=== PATIENT | male | born 1975 | race Caucasian/White ===

== ENCOUNTER 2016-07-18 13:18 | Emergency (ER) | payer MEDICAID ==
--- NOTE | 2016-07-18 13:34 | ERNOTE ---
Medical Problem HPI - Narrative Date of Service: 07/18/16 - General Chief Complaint: General Assessment Time Seen by Provider: 07/18/16 13:33 Source: patient - Immun/Allergies/Home Medications Immunizations: IMMUNIZATION HX Immunizations Up to Date Yes History of Influenza Vaccine No Hx Pneumococcal Vaccination No Allergies/Adverse Reactions: Allergies No Known Allergies Allergy (Verified 07/18/16 13:31) Home Medications: HOME MEDICATIONS NK [No Home Medication] 07/18/16 [Last Taken Unknown] - History of Present History Narrative: Pt presents to ED with c/o swallowing a 1 1/2 inch nail 2 days ago. Pt states he was hanging curtains with the nail in his mouth and accidentally swallowed it. Pt states he drinks a lot and smokes pot. Pt states that he didn't remember swallowing the nail because he drank a lot afterwards and a luis f of his reminded him of the event which then he claims he started to remember. Pt denies any additional pain/discomfort from this event. Pt denies any aggravating or alleviating factors. Pt states that he has swallowed a needle in the past and needed to have surgery to remove it. Date (Duration): 07/16/16 Severity: mild Review of Systems - Review of Systems Constitutional: Present: no symptoms reported. Absent: recent illness, fever, chills, weakness EYE: Present: no symptoms reported. Absent: double vision, vision changes ENT: Present: no symptoms reported. Absent: nose pain, nose congestion, nasal drainage Respiratory: Present: cough - intermittent dry cough. Absent: wheezing Cardiology: Present: no symptoms reported. Absent: chest pain, palpitations Gastrointestinal/Abdominal: Present: abdominal pain - pain in upper right quadrant not changed from patient baseline. Absent: nausea, vomiting, diarrhea , constipation, eating less, drinking less Genitourinary: Present: no symptoms reported. Absent: frequency, pain, hematuria Musculoskeletal: Present: back pain - right lower back pain unchanged from patient normal Skin: Present: no symptoms reported. Absent: rash, change in color Neurological: Present: no symptoms reported. Absent: headache, dizziness/light- headedness, seizure, weakness, tingling, tremors Endocrine: Present: no symptoms reported. Absent: excessive sweating, flushing Hematologic/Lymphatic: Present: no symptoms reported. Absent: easy bruising, easy bleeding Psych: Present: no symptoms reported. Absent: anxiety, depressed All Other Systems: All systems neg except as marked - Patient's Past Medical History Patient History - Medical: No pertinent hx Patient History - Cardiac/Respiratory: No pertinent hx Patient History - Cancer: No Hx of Cancer Patient History - Surgical Procedures: Other Patient History - Other: None - Social History Living Situations: home Abuse History: Hx of Substance Use Psych History: No pertinent hx Smoking Status: Current some day smoker Have you smoked in the past 12 months: Yes Alcohol Use: heavy Drug Use: marijuana - Immunizations Immunizations Up to Date: Yes Hx Pneumococcal Vaccination: No History of Influenza Vaccine: No Physical Exam - Physical Exam General Appearance: Present: wd/wn, alert, no apparent distress, active Eye Exam: Normal inspection: bilateral, PERRL: bilateral, EOMI: bilateral Ears, Nose, Throat: Absent: hearing decreased, nasal congestion, sinus pain/ drainage Neck: Present: normal inspection, nontender, supple, full range of motion Respiratory: Present: no respiratory distress, normal breath sounds, no accessory muscle use, chest nontender, lungs clear. Absent: respiratory distress, accessory muscle use, crackles, rhonchi, wheezing Cardiovascular/Chest: Present: regular rate, rhythm, no murmur, normal peripheral pulses. Absent: tachycardia, bradycardia, systolic murmur, diastolic murmur Gastrointestinal/Abdominal: Present: normal bowel sounds, nondistended, soft, no organomegaly, tenderness - right upper quadrant tenderness to palpation. Absent: nontender, abnormal bowel sounds, distended Back Exam: Present: normal inspection, normal range of motion, no vertebral tenderness Extremity Exam: Present: normal inspection, non-tender, normal range of motion, no edema Neurological Exam: Present: alert, oriented, normal mood/affect, no motor/ sensory deficits. Absent: facial droop, motor weakness Skin Exam: Present: normal color, warm/dry. Absent: skin rash Lymphatic Exam: Present: no adenopathy ED Progress - Date and Time Seen: Date and Time: 07/18/16 13:[address] Anguiano regarding nail in right lower quadrant. 07/18/16 14:04 Dr Umana came to evaluate pt. and we will have pt. return home and wait for nail to be passed. Pt. to follow up with Dr Morgan in clinic if he develops any abd pain or does not pass nail in 1 week. - Vital Signs Patient's Vital Signs:: I have reviewed the patient's vital signs. Vital Signs: Vital Signs 07/18/16 13:27 Temperature 36.7 C Pulse Rate 83 Respiratory 16 Rate Blood Pressure 140/90 O2 Sat by Pulse 100 Oximetry - X-Ray X-Ray #1 X-Ray: abdomen - 1 1/2 inch nail in right lower quadrant - Progress/Reassessment Chief Complaint: General Assessment Departure - Departure Clinical Impression: Swallowed foreign body Qualifiers: Encounter type: initial encounter Qualified Code(s): T18.9XXA - Foreign body of alimentary tract, part unspecified, initial encounter Disposition: Home self-care Condition: Good Instructions: Swallowed Foreign Body, Adult, [id number] Additional Instructions: Please follow up with Dr Morgan as needed. Referrals: Linh Ruiz MD [Staff Physician] -
[2016-07-18 13:58] VITALS: BP 132/91
--- OUTSIDE RECORDS SUMMARY | 2016-07-18 13:59 | XMS REPORT | Continuity of Care Document ---
:1975 Author Organization [facility] ([facility]) Address [address] [place] [address] Phone [phone] Care Team Providers Name Role Phone Unavailable Primary Care Provider Unavailable Source Comments This disclosure is being made pursuant to the Care Everywhere program, applicable federal and state laws, and may not contain all informaitonavailable regarding this patient.[facility] ([facility]) Active Allergies and Adverse Reactions Not on File Current Medications Not on file Active Problems Not on file Social History Tobacco Use Types Packs/Day Years Used Date Never Assessed Plan of Care Health Maintenance Due Date Last Done Comments Hepatitis B Vaccine (1 of 3 - Primary Series) 1975 Tdap Vaccine 1984 Lipid Disorder Screening 08/30/1991 MMR Vaccine 08/30/1991 Td Vaccine 08/30/1991 Influenza Vaccine: Seasonal (#1) 12/06/2015 Results from Last 3 Months Not on file
--- NOTE | 2016-07-18 14:12 | CONS ---
HPI - General Date of Service: 07/18/16 Narrative: Asked to see this ER patient who presented today after swallowing a nail on Sunday (3 days ago). He was significantly impaired at the time this occured. Denies any abdominal pain, fevers, chills. AXR shows a linear metallic object in the right pelvis, without free air. Source: patient, RN/MD, old records Exam Limitations: no limitations - History of Present Illness Allergies/Adverse Reactions: Allergies No Known Allergies Allergy (Verified 07/18/16 13:31) Home Medications: Home Medications Medication Instructions Recorded Last Taken NK [No Home Medication] 07/18/16 Unknown - Patient's Past Medical History Patient History - Medical: No pertinent hx Patient History - Cardiac/Respiratory: No pertinent hx Patient History - Cancer: No Hx of Cancer Patient History - Surgical Procedures: Other Patient History - Other: None - Social History Living Situations: home Abuse History: Hx of Substance Use Psych History: No pertinent hx Smoking Status: Current some day smoker Have you smoked in the past 12 months: Yes Alcohol Use: heavy Drug Use: marijuana - Immunizations Immunizations Up to Date: Yes Hx Pneumococcal Vaccination: No History of Influenza Vaccine: No Procedures CLOSURE SKIN & SUBCUTANEOUS NEC (12/21/04) DRAINAGE OF R LOW ARM SUBCU/FASCIA, PERC APPROACH, DIAGN (03/09/16) REPAIR SCALP SKIN, EXTERNAL APPROACH (08/15/15) Physical Examination - Exam Vital Signs: Vital Signs - Last Taken Temp 36.8 C 07/18/16 13:58 Pulse 86 07/18/16 13:58 Resp 16 07/18/16 13:58 BP 132/91 07/18/16 13:58 Pulse Ox 100 07/18/16 13:58 O2 Oxygen Delivery Method Room Air Constitutional: Present: Alert, Oriented x3, Cooperative ENT Exam: Present: normal ENT inspection Eye Exam: bilateral eye: normal inspection Neck: Present: normal inspection Respiratory: Present: no respiratory distress Abdomen: Present: soft, nontender, nondistended, no masses. Absent: guarding, rigidity, rebound tenderness Extremity: Present: normal inspection Skin Exam: Present: normal color, warm/dry Neurologic: Present: no motor/sensory deficits - Results and Findings: Narrative: Swallowed nail. Progressing well through GI tract. Should pass uneventfully. He should keep sober until it passes and contact us for any significant abdominal pain/fevers/chills. This was reviewed with patient.
== END 2016-07-18 14:13 | disposition home or self-care (01) ==
LOC: ER 13:18
DX: T18.9XXA Foreign body of alimentary tract, part unspecified, initial encounter (principal); X58.XXXA Exposure to other specified factors, initial encounter; Y93.89 Activity, other specified; Y92.9 Unspecified place or not applicable; Y99.8 Other external cause status; Z72.0 Tobacco use

== ENCOUNTER 2016-11-20 11:44 | Emergency (ER) | payer MEDICAID ==
[2016-11-20] MEDS ORDERED: NORMAL SALINE 1,000 ML IV ONE (12:11)
[2016-11-20] MEDS ORDERED: PANTOPRAZOLE SODIUM 40 MG in NORMAL SALINE 100 ML IV ONE (12:11)
[2016-11-20 12:23] LABS: Hematocrit 45.1 % (42.0-52.0); Hemoglobin 16.1 gm/dL (13.5-18.0); Mean Cell Volume 90.4 fl (78-100); Mean Corpuscular Hemoglobin 32.3 pg (27-31); Mean Corpuscular Hgb Conc 35.7 g/dl (32-36); Mean Platelet Volume 9.1 fl (6.0-9.5); Neutrophil # 2.8 K/mm3 (1.3-6.0); Platelet Count 223 K/mm3 (150-450); Red Blood Count 4.99 M/mm3 (4.7-6.0); Red Cell Distribution Width 13.6 % (11.5-14.0); White Blood Count 5.4 K/mm3 (4.0-10.5)
[2016-11-20] MEDS ORDERED: PANTOPRAZOLE SODIUM 40 MG/100 ML PIGGYBACK IV ONE (12:26)
[2016-11-20] MEDS ORDERED: THIAMINE HCL 100 MG in NORMAL SALINE 50 ML IV ONE (12:27)
[2016-11-20 12:32] LABS: INR 1.02 INR (0.90-1.10); Prothrombin Time (Patient) 10.6 Seconds (9.4-11.4)
--- NOTE | 2016-11-20 12:33 | ERNOTE ---
Medical Problem HPI - General Chief Complaint: General Assessment Time Seen by Provider: 11/20/16 11:57 Source: patient Exam Limitations: no limitations - Immun/Allergies/Home Medications Immunizations: IMMUNIZATION HX Immunizations Up to Date No History of Influenza Vaccine No Hx Pneumococcal Vaccination No Allergies/Adverse Reactions: Allergies No Known Allergies Allergy (Verified 11/20/16 11:56) Home Medications: HOME MEDICATIONS Famotidine [Pepcid] 40 mg PO HS #30 tab 11/20/16 [Last Taken Unknown] Sucralfate [Carafate] 1 gm PO QID #120 tab 11/20/16 [Last Taken Unknown] - History of Present History Narrative: Patient comes in with a rather profound history of both alcohol and tobacco abuse. He states he drinks an easy case of beer a night during the week with even more on the weekend, as well as smoking 2-3 packs of cigarettes a day. He declares this is been his lifestyle for many years however over the past few days he's noticed some epigastric abdominal pain and black stools. He states on the weekend he would drink until he passes out and when he wakes up he will go back to drinking beer again and may drink 2 cases are more a day on the weekend. He describes his epigastric pain as being at least moderate in intensity and burning in nature. Timing: constant, intermittent Modifying Factors - (Worsens): Present: other - increases with any ETOH intake Review of Systems - Review of Systems Constitutional: Present: See HPI EYE: Present: no symptoms reported ENT: Present: no symptoms reported Respiratory: Present: no symptoms reported Cardiology: Present: no symptoms reported Gastrointestinal/Abdominal: Present: no symptoms reported, abdominal pain, other - black tarry stools Genitourinary: Present: no symptoms reported Musculoskeletal: Present: no symptoms reported Skin: Present: no symptoms reported Neurological: Present: no symptoms reported Endocrine: Present: no symptoms reported Hematologic/Lymphatic: Present: no symptoms reported Psych: Present: no symptoms reported - Patient's Past Medical History Patient History - Medical: No pertinent hx Patient History - Cardiac/Respiratory: No pertinent hx Patient History - Cancer: No Hx of Cancer Patient History - Surgical Procedures: Other Patient History - Other: None - Social History Living Situations: home Abuse History: Hx of Substance Use Psych History: No pertinent hx Smoking Status: Current every day smoker Alcohol Use: heavy Drug Use: none, marijuana - Immunizations Immunizations Up to Date: No Hx Pneumococcal Vaccination: No History of Influenza Vaccine: No Physical Exam - Physical Exam General Appearance: Present: wd/wn, alert, moderate distress Eye Exam: Normal inspection: bilateral, PERRL: bilateral Ears, Nose, Throat: Present: normal ENT inspection, H, normal pharynx Neck: Present: normal inspection, nontender Respiratory: Present: no respiratory distress, normal breath sounds, no accessory muscle use, chest nontender, lungs clear Cardiovascular/Chest: Present: regular rate, rhythm, no murmur, normal peripheral pulses Gastrointestinal/Abdominal: Present: normal bowel sounds, nondistended, soft, no organomegaly, tenderness - in the epigastric region Rectal Exam: Present: black stool Back Exam: Present: normal inspection, normal range of motion Extremity Exam: Present: normal inspection, non-tender, no edema, normal range of motion Neurological Exam: Present: alert, oriented, normal mood/affect Skin Exam: Present: normal color, warm/dry Lymphatic Exam: Present: no adenopathy ED Progress - Results and Orders Patient's Lab Results:: I have reviewed the patient's lab results. - Vital Signs Patient's Vital Signs:: I have reviewed the patient's vital signs. Vital Signs: Vital Signs 11/20/16 11:49 Temperature 36.0 C L Pulse Rate 84 Respiratory 16 Rate Blood Pressure 145/93 O2 Sat by Pulse 98 Oximetry - Progress/Reassessment Chief Complaint: General Assessment Plan - Plan Plan: While it should be noted that the Hemoccult was negative by history certainly sounds like he could have an intermittent GI bleed from his chronic alcoholism. I have ordered an H. pylori antibodies which will be a send out and the patient will be sent home on Pepcid and Carafate and given a referral to Dr. Ruiz as I suspect an EGD might be the next appropriate step. He will be given instructions on alcoholism and it was suggested that he look into AA as an adjunct as well. Departure - Departure Clinical Impression: Alcoholism Gastritis Qualifiers: Gastritis type: alcoholic Chronicity: acute Gastritis bleeding: presence of bleeding unspecified Qualified Code(s): K29.20 - Alcoholic gastritis without bleeding Disposition: Home self-care Condition: Good Instructions: Alcohol Intoxication, [id number], Alcohol Use Disorder, Gastritis, Adult, [id number] Referrals: Linh Ruiz MD [Staff Physician] - Prescriptions: Famotidine [Pepcid] 40 mg PO HS #30 tab Sucralfate [Carafate] 1 gm PO QID #120 tab
[2016-11-20 12:37] LABS: Albumin * 4.2 gm/dl (3.4-5.0); Anion Gap 14.9 mmol/L (6.8-13.8); BUN/Creatinine Ratio 16.5 (9.0-21.6); Bilirubin, Total 0.7 mg/dL (0.0-1.1); Ca. Corrected For Albumin 8.7 mg/dL (8.4-10.2); Calcium * 9.2 mg/dL (7.9-10.9); Carbon Dioxide 24.4 mmol/L (24-32.6); Magnesium 2.2 mg/dL (1.2-2.8); Potassium 4.3 mmol/L (3.4-4.6); Total Protein 8.2 gm/dL (6.2-8.2)
[2016-11-20 14:05] VITALS: BP 137/86
== END 2016-11-20 14:04 | disposition home or self-care (01) ==
LOC: ER 11:44
DX: F10.20 Alcohol dependence, uncomplicated (principal); K29.20 Alcoholic gastritis without bleeding; Z72.0 Tobacco use
CPT/HCPCS: 36415; 80053; 82272; 83605; 83690; 83735; 85025; 85610; 96365; 96367; 99284; G0481

== ENCOUNTER 2017-01-22 02:55 | Emergency (ER) | payer MEDICAID ==
[2017-01-22 03:03] VITALS: BP 142/90
[2017-01-22] MEDS ORDERED: KETOROLAC TROMETHAMINE 60 MG/2 ML VIAL IM ONE ×2 (03:13→03:16)
[2017-01-22] MEDS ORDERED: PENICILLIN V POTASSIUM 250 MG TABLET PO ONE (03:13)
[2017-01-22] MEDS ORDERED: PENICILLIN V POTASSIUM 250 MG TABLET ONE (03:16)
--- NOTE | 2017-01-22 03:18 | ERNOTE ---
ENT HPI Time Seen by Provider: 01/22/17 03:10 Source: patient Exam Limitations: no limitations - Immun/Allergies/Home Medications Immunizations: IMMUNIZATION HX Immunizations Up to Date No History of Influenza Vaccine No Hx Pneumococcal Vaccination No Allergies/Adverse Reactions: Allergies Allergy/AdvReac Type Severity Reaction Status Date / Time No Known Allergies Allergy Verified 11/20/16 11:56 Home Medications: HOME MEDICATIONS Sucralfate [Carafate] 1 gm PO QID #120 tab 11/20/16 [Last Taken Unknown] HYDROcodone/ACETAMINOPHEN [[place] 5-325] 2 each PO ONCE #2 tablet 01/22/17 [Last Taken Unknown] Penicillin V Potassium 500 mg PO QID #40 tablet 01/22/17 [Last Taken Unknown] - History of Present Illness Narrative: Here for right lower jaw pain and severe tooth ache Review of Systems - Review of Systems Constitutional: Present: no symptoms reported EYE: Present: no symptoms reported ENT: Present: See HPI Respiratory: Present: no symptoms reported Cardiology: Present: no symptoms reported Gastrointestinal/Abdominal: Present: no symptoms reported Genitourinary: Present: no symptoms reported Musculoskeletal: Present: no symptoms reported - Patient's Past Medical History Patient History - Medical: GERD Patient History - Cardiac/Respiratory: No pertinent hx Patient History - Cancer: No Hx of Cancer Patient History - Surgical Procedures: Other Patient History - Other: None - Social History Living Situations: alone Abuse History: Hx of Substance Use Psych History: No pertinent hx Smoking Status: Current every day smoker Have you smoked in the past 12 months: Yes Do you dip or chew tobacco: No Alcohol Use: heavy Drug Use: marijuana - Immunizations Immunizations Up to Date: No Hx Pneumococcal Vaccination: No History of Influenza Vaccine: No Physical Exam - Physical Exam General Appearance: Present: wd/wn, alert, no apparent distress Ears, Nose, Throat: Present: other - patient does have a tooth abscess just inferior to tooth #33 and 34. The entire gingival region and margin is inflamed and there are no open lesions. I do not palpate any submandibular lymphadenopathy and there is no Vincent's angina. Respiratory: Present: no respiratory distress, normal breath sounds, no accessory muscle use, chest nontender, lungs clear Cardiovascular/Chest: Present: regular rate, rhythm, no murmur, normal peripheral pulses ED Progress - Vital Signs Patient's Vital Signs:: I have reviewed the patient's vital signs. Vital Signs: Vital Signs 01/22/17 02:59 Temperature 36.4 C L Pulse Rate 86 Respiratory 16 Rate Blood Pressure 142/90 O2 Sat by Pulse 98 Oximetry - Progress/Reassessment Chief Complaint: Dental Problem Departure Clinical Impression: Abscessed tooth - Departure Disposition: Home self-care Condition: Fair Instructions: Dental Care and Dentist Visits Prescriptions: HYDROcodone/ACETAMINOPHEN [[place] 5-325] 2 each PO ONCE #2 tablet Penicillin V Potassium 500 mg PO QID #40 tablet
[2017-01-22] MEDS ORDERED: HYDROcodone/ACETAMINOPHEN 1 EACH TABLET ONE (03:23)
[2017-01-22] MEDS ORDERED: HYDROcodone/ACETAMINOPHEN 1 EACH TABLET PO ONE (03:23)
== END 2017-01-22 03:28 | disposition home or self-care (01) ==
LOC: ER 02:55
DX: K04.7 Periapical abscess without sinus (principal); F17.200 Nicotine dependence, unspecified, uncomplicated

== ENCOUNTER 2017-02-09 08:24 | Emergency (ER) | payer MEDICAID ==
[2017-02-09 08:30] VITALS: BP 141/90
[2017-02-09] MEDS ORDERED: CLINDAMYCIN HCL 150 MG CAPSULE PO ONE (08:52)
[2017-02-09] MEDS ORDERED: CLINDAMYCIN HCL 150 MG CAPSULE ONE (08:57)
--- NOTE | 2017-02-09 09:16 | ERNOTE ---
ENT HPI Date of Service: 02/09/17 Presenting Symptoms: dental pain Time Seen by Provider: 02/09/17 08:38 Source: patient - Immun/Allergies/Home Medications Immunizations: IMMUNIZATION HX Immunizations Up to Date No History of Influenza Vaccine No Hx Pneumococcal Vaccination No Allergies/Adverse Reactions: Allergies Allergy/AdvReac Type Severity Reaction Status Date / Time No Known Allergies Allergy Verified 02/09/17 08:30 Home Medications: HOME MEDICATIONS NK [No Home Medication] 02/09/17 [Last Taken Unknown] - History of Present Illness Narrative: Patient seen 01/22 for right lower tooth abscess. Started on Pen V-K. He has an appointment with oral surgeon on 02/19. Returns with new swelling, drainage , and pain at same location. Completed antibiotics. No fever, chills, difficulty swallowing. Associated Symptoms - ENT: Reports: denies symptoms Review of Systems - Review of Systems Constitutional: Present: no symptoms reported Respiratory: Present: no symptoms reported Cardiology: Present: no symptoms reported Gastrointestinal/Abdominal: Present: no symptoms reported Neurological: Present: no symptoms reported - Patient's Past Medical History Patient History - Medical: GERD Patient History - Cardiac/Respiratory: No pertinent hx Patient History - Cancer: No Hx of Cancer Patient History - Surgical Procedures: Other Patient History - Other: None - Social History Living Situations: home Abuse History: Hx of Substance Use Psych History: No pertinent hx Alcohol Use: none Drug Use: marijuana - Immunizations Immunizations Up to Date: No Hx Pneumococcal Vaccination: No History of Influenza Vaccine: No Physical Exam - Physical Exam General Appearance: Present: wd/wn, alert, no apparent distress Head Exam: Present: normal inspection, no evidence of injury Ears, Nose, Throat: Present: other - Right lower posterior gum with erythemia, purulent drainage. Molar loose. No lymphadenopathy or pharyngeal swelling. ED Progress - Vital Signs Patient's Vital Signs:: I have reviewed the patient's vital signs. Vital Signs: Vital Signs 02/09/17 08:26 Temperature 36.7 C Pulse Rate 73 Respiratory 12 Rate Blood Pressure 141/90 O2 Sat by Pulse 96 Oximetry - Progress/Reassessment Chief Complaint: Dental Problem Plan - Plan Plan: contacted [facility] clinic and talked to Dr. Montalvo's office. They will see him this AM. He is to go directly to the clinic. Departure Clinical Impression: Tooth abscess - Departure Disposition: [facility] Condition: Good Instructions: Dental Abscess, [id number] Additional Instructions: Go directly to [facility] cliinic for Dr. Montalvo to see this AM.
== END 2017-02-09 09:12 | disposition short-term general hospital (02) ==
LOC: ER 08:24
DX: K04.7 Periapical abscess without sinus (principal); M84.441A Pathological fracture, right hand, initial encounter for fracture

== ENCOUNTER 2017-02-10 08:34 | Emergency (ER) | payer MEDICAID ==
[2017-02-10 09:08] VITALS: BP 151/89
== END 2017-02-10 09:09 | disposition home or self-care (01) ==
LOC: ER 08:34
PROC: 2W3CX1Z Immobilization of Right Lower Arm using Splint (ICD-10-PCS; principal; 2017-02-10)
DX: M84.441A Pathological fracture, right hand, initial encounter for fracture (principal)